=== PATIENT | male | born 1955 | race Caucasian/White ===

== ENCOUNTER → 2020-02-15 10:52 | Outpatient (CLI) | payer OTHER, SELFPAY ==
--- NOTE | 2020-02-15 | DI.MRI.S_ITS ---
PROCEDURE: MR PELIS WO/W CON INDICATIONS: Malignant neoplasm of prostate TECHNIQUE: Coronal HASTE, axial T1 FSE with fat saturation, 3-plane nonbreath-hold T2 FSE. After the administration of contrast, dynamic axial, delayed axial and coronal VIBE or 2-D FLASH with fat saturation through the pelvis. Optional diffusion weighted imaging and ADC may be performed. COMPARISON: None. FINDINGS: Image quality: Diagnostic. Prostate: There is a large postsurgical defect within the prostate consistent with sequela of prior transurethral prostatic resection, with surgical absence of the majority of the transition zone. Within the inferior aspect of the surgical defect, there is a lobulated mass measuring approximately 2.8 x 2.5 x 2.8 cm. This demonstrates heterogeneous internal signal with predominant hypointense signal within the right aspect of the lesion. There is heterogeneous enhancement following contrast administration post prominent in the right aspect. This also demonstrates mild hyperintensity on DWI diffusion sequences with moderate hypointensity on the ADC map. There is residual peripheral zone along the surgical margins. No suspicious lesions demonstrated within the peripheral zone. Genitourinary system: There is mild bladder wall thickening and trabeculation with small bladder diverticula on the right and anterior aspects of the bladder. Distal ureters are non distended. Bowel and peritoneum: No pathologic free pelvic fluid. Inferior colon and small bowel loops are normal in caliber. Nodes and vessels: No pelvic or inguinal adenopathy by size criteria. Iliac vessels are normal in caliber. Soft tissues: No inguinal hernias. Bones: Marrow demonstrates normal overall signal, without lesions to suggest metastases. IMPRESSION: 1. Post surgical changes demonstrated status post prior TURP. 2. Lobulated heterogeneously enhancing mass within the inferior aspect of the prostatic surgical defect. While this may represent residual transitional zone prostatic tissue, residual or recurrent malignancy is not excluded particularly within the right aspect of the lesion which demonstrates hypointense T2 signal with prominent enhancement. Recommend correlation with cystoscopy. Given the postsurgical changes with associated vascular perfusion changes, PI-RADS analysis was not performed on this lesion. 3. No lymphadenopathy or other evidence of metastatic disease in the pelvis. 4. Bladder wall trabeculation and thickening with small diverticula compatible with sequelae of chronic bladder outlet obstruction. Dictated by: Js Lawrence M.D. on 02/15/2020 at 14:45 Approved by: Js Lawrence M.D. on 02/15/2020 at 14:59
== END ==
PROVIDERS: PCP Registered Nurse Diabetes Educator; Referring Provider Registered Nurse Diabetes Educator; Visit Provider Specialist
DX: C61 Malignant neoplasm of prostate (principal); N32.89 Other specified disorders of bladder; N32.3 Diverticulum of bladder
CPT/HCPCS: 72197; A9579

== ENCOUNTER → 2020-10-01 11:25 | Outpatient (CLI) | payer MEDICARE, OTHER, SELFPAY | PROVIDERS: PCP Registered Nurse Diabetes Educator; Visit Provider Specialist | DX: C61 Malignant neoplasm of prostate (principal); N39.0 Urinary tract infection, site not specified; N52.9 Male erectile dysfunction, unspecified | CPT/HCPCS: 51798; 81002; 87086; 99214 ==

== ENCOUNTER → 2021-05-23 12:07 | Outpatient (CLI) | payer MEDICARE, OTHER, SELFPAY ==
[2021-05-23 14:17] LABS: Prostate Specific Antigen 0.994 ng/mL (0.10-4.00)
== END ==
PROVIDERS: PCP Internal Medicine; Referring Provider Specialist; Visit Provider Specialist
DX: C61 Malignant neoplasm of prostate (principal)
CPT/HCPCS: 36415; 84153

== ENCOUNTER → 2021-10-02 09:07 | Outpatient (CLI) | payer OTHER, SELFPAY ==
[2021-10-02 10:52] LABS: COVID19 -Nasal RAPID Negative (Negative)
== END ==
PROVIDERS: PCP Internal Medicine; Visit Provider Surgery
DX: Z20.822 Contact with and (suspected) exposure to COVID-19 (principal); Z01.812 Encounter for preprocedural laboratory examination
CPT/HCPCS: 87635; C9803

== ENCOUNTER 2021-10-03 13:14 | Day surgery (SDC) | payer OTHER, SELFPAY ==
--- NOTE | 2021-10-03 13:56 | PM.HP.1 ---
History of Present Illness History of Present Illness Date Patient Seen: 10/03/21 Time Patient Seen: 13:56 Chief complaint: SCREENING COLONOSCOPY Narrative: H/o colon polyps, last scope was 5 years ago. No symptoms Patient History Medical History (Updated 10/03/21 @ 13:54 by Declan Ramirez RN) Arthritis Erectile dysfunction Erectile dysfunction Prostate cancer Prostate cancer Thrombocytopenia Surgical History H/O hernia repair H/O transurethral resection of prostate H/O vasectomy Family & Social History Tobacco & Substance use: Smoking Status Never smoker Meds Home Medications and Allergies Home Medications Medication Instructions Recorded Confirmed Type finasteride 5 mg tablet 5 mg PO DAILY 09/26/20 10/03/21 History hydroxyurea 500 mg capsule 500 mg PO DAILY 09/26/20 10/03/21 History aspirin 81 mg tablet,delayed 81 mg PO DAILY 10/01/20 10/03/21 History release multivitamin 1 tab PO DAILY 10/01/20 10/03/21 History turmeric root extract 1,053 mg 1,076 mg PO DAILY 10/01/20 10/03/21 History tablet Allergies Allergy/AdvReac Type Severity Reaction Status Date / Time No Known Drug Allergies Allergy Verified 10/03/21 13:52 Review of Systems Review of Systems ROS: Yes All systems reviewed with the patient and are negative except as otherwise documented Exam Const General: cooperative and healthy appearing Nutritional Appearance: average body habitus HENMT Head: normal to inspection Eyes Sclera: sclerae normal Neck Neck: trachea midline Resp Effort & Inspection: normal respiratory effort and able to speak in complete sentences Auscultation: clear to auscultation bilaterally Cardio Rate: regular rate Rhythm: regular rhythm GI Inspection: normal to inspection Skin General: elasticity normal and turgor normal Neuro General: patient alert and patient oriented x3 Cognition: normal cognition Psych Appearance: grossly normal Judgment: judgment good Assessment & Plan Assessment & Plan narrative: H/o colon polyps. Plan: colonoscopy with moderated sedation COVID-19 COVID-19 status: Negative Time Spent With Patient Time with patient: less than 30 minutes Critical Care time: I spent a total of [] minutes of critical care time on this patient's care today; this time is exclusive of procedural time.
[2021-10-03 13:57] VITALS: BP 135/84; PULSE 74; RESP 16; TEMP 36.5; O2SAT 99; BMI 26.6
[2021-10-03] MEDS: fentaNYL 250 MCG/5 ML INJ IV (15:20)
[2021-10-03] MEDS: MIDAZOLAM 5 MG/5 ML VIAL IV (15:20)
--- NOTE | 2021-10-03 15:48 | PM.OP.ENDO ---
Operative Date/Time/Diagnoses Date of procedure: 10/03/21 Time of procedure: 15:48 Pre-op diagnosis: History of colon polyps Post-op diagnosis: same Procedure & Clinicians Study performed: Colonoscopy with moderate sedation Same procedure as scheduled: Yes Indications: History of colon polyps Surgeon: Juanita Pope Procedure Notes SCOAP/Timeout: Done Procedure in detail: Preop diagnosis: History of colon polyps Postop diagnosis: Same Physician: Lindsey Pope MD Procedure: Colonoscopy with moderate sedation Findings: Very torturous colon, no polyps identified. Scant diverticulosis of the descending colon Procedure: Patient placed in the lateral position. Rectal exam is performed showing normal tone no masses. Colonoscope was inserted into the rectum and advanced to ileocecal valve with minimal difficulty. Insufflation extractions scope with the above findings. Impression: No polyps identified. Scant small diverticula in the descending colon. Plan: Repeat colonoscopy in 5 years due to history of colon polyps Sedation minutes: 59 Findings: diverticulitis Specimen(s): none sent Complications: none Post-procedure Recommendations: Colonscopy in 5 years Disposition: PACU
[2021-10-03 15:50] VITALS: BP 120/58; PULSE 74; RESP 16; TEMP 36.6; O2SAT 97
[2021-10-03 15:55] VITALS: BP 124/83; PULSE 73; RESP 14; O2SAT 97
[2021-10-03 16:00] VITALS: BP 116/75; PULSE 73; RESP 14; O2SAT 96
[2021-10-03] MEDS: LACTATED RINGERS 1,000 ML 42 ML IV (16:02)
[2021-10-03 16:06] VITALS: BP 127/75; PULSE 78; RESP 14; O2SAT 97
== END 2021-10-03 16:19 | disposition home or self-care (01) ==
PROVIDERS: PCP Internal Medicine; Referring Provider Surgery; Visit Provider Surgery
PROC: 0DJD8ZZ Inspection of Lower Intestinal Tract, Via Natural or Artificial Opening Endoscopic (ICD-10-PCS; CPT 45378; principal; 2021-10-03 14:30)
DX: Z12.11 Encounter for screening for malignant neoplasm of colon (principal); Z86.010 Personal history of colon polyps; K57.30 Diverticulosis of large intestine without perforation or abscess without bleeding
CPT/HCPCS: 45378; 99152; 99153; J2250; J3010

== ENCOUNTER → 2022-01-01 13:27 | Outpatient (CLI) | payer OTHER, SELFPAY | PROVIDERS: PCP Internal Medicine; Referring Provider Internal Medicine; Visit Provider Internal Medicine | DX: R07.89 Other chest pain (principal); Z53.8 Procedure and treatment not carried out for other reasons ==

== ENCOUNTER → 2022-01-06 11:46 | Outpatient (CLI) | payer OTHER, SELFPAY ==
[2022-01-06 13:49] LABS: COVID19 -Nasal RAPID Negative (Negative)
== END ==
PROVIDERS: PCP Internal Medicine; Referring Provider Internal Medicine Cardiovascular Disease; Visit Provider Family Medicine Sleep Medicine
DX: Z20.822 Contact with and (suspected) exposure to COVID-19 (principal)
CPT/HCPCS: 87635; C9803

== ENCOUNTER → 2022-01-08 15:03 | Outpatient (CLI) | payer OTHER, SELFPAY ==
--- NOTE | 2022-01-08 | DI.NM.S_ITS ---
PROCEDURE: NM EXERCISE TREADMILL NON NUC COMPARISON: None. INDICATIONS: Other chest pain FINDINGS: Rest ECG sinus rhythm. Manuel protocol 7:51, maximum heart rate 147 bpm (95% peak predicted), peak blood pressure 176/80. 10.1 METS, REGGIE -3%. Stress ECG sinus tachycardia, 1 to 2 mm flat to upsloping ST segment depressions leads II, III, aVF and V3 through V6. PVCs noted in early recovery. IMPRESSION: 1. Abnormal exercise stress test with 1 to 2 mm flat to upsloping ST segment changes and PVCs in recovery concerning for ischemia. 2. Normal exercise capacity. 3. Normal blood pressure response to exercise. 4. Consider repeat stress testing with associated imaging. 5. Message was left with the office of the ordering provider, Kimberly Petersen MD at [phone]. Dictated by: Nessa Macias D.O. on 01/09/2022 at 17:23 Approved by: Nessa Macias M.D. on 01/09/2022 at 17:37
== END ==
PROVIDERS: PCP Internal Medicine; Referring Provider Internal Medicine Cardiovascular Disease; Visit Provider Internal Medicine
DX: R07.89 Other chest pain (principal); R94.39 Abnormal result of other cardiovascular function study
CPT/HCPCS: 93017

== ENCOUNTER → 2022-02-04 11:07 | Outpatient (CLI) | payer MEDICARE, OTHER, SELFPAY ==
[2022-02-04 14:56] LABS: Prostate Specific Antigen 0.972 ng/mL (0.10-4.00)
== END ==
PROVIDERS: PCP Internal Medicine; Referring Provider Specialist; Visit Provider Specialist
DX: C61 Malignant neoplasm of prostate (principal)
CPT/HCPCS: 36415; 84153

== ENCOUNTER → 2025-05-10 12:47 | Outpatient (CLI) | payer OTHER, SELFPAY ==
[2025-05-10 13:41] LABS: Estimated Glomerular Filt Rate > 60 mL/min (>60)
== END ==
PROVIDERS: PCP Family Medicine; Referring Provider Internal Medicine Hematology & Oncology; Visit Provider Internal Medicine Hematology & Oncology
DX: C61 Malignant neoplasm of prostate (principal)
CPT/HCPCS: 36415; 82565

== ENCOUNTER → 2025-05-10 12:56 | Outpatient (CLI) | payer OTHER, SELFPAY ==
--- NOTE | 2025-05-10 12:58 | DI.MRI.S_ITS ---
PROCEDURE: MR PELVIC PROSTATE PROTOCOL INDICATIONS: Prostate Cancer TECHNIQUE: Coronal HASTE, axial T1 FSE with fat saturation, 3-plane nonbreath-hold T2 FSE. After the administration of contrast, dynamic axial, delayed axial and coronal VIBE or 2-D FLASH with fat saturation through the pelvis. Diffusion weighted imaging and ADC was performed. COMPARISON: None. FINDINGS: Image quality: Diffusion weighted and dynamic contrast enhanced images are diagnostic. Prostate: Gland size is 4 x 2.8 x 3 cm; ellipsoid gland volume is 17.4 mL. PSA not provided to calculi PSA density Transitional zone heterogenous nodules are present, either well encapsulated or mostly encapsulated, compatible with PI-RADS 1 or 2 likely BPH nodules. Mid gland left posterolateral peripheral zone lesion measures 8 mm (4/11). DWI score 4. T2 score 3. DCE positive. PI-RADS 4. Mid gland right posterolateral peripheral zone lesion measures 7 mm (4/12). DWI score 4. T2 score 3. DCE positive. PI-RADS 4. The seminal vesicles appear clear. No definite extracapsular disease. Genitourinary system: Trabeculated bladder, usually due to chronic obstruction. Possible prior TURP changes. No distal ureter dilation Bowel and peritoneum: No acute small bowel obstruction. No drainable abscess or ascites Nodes and vessels: No aneurysmal vessel identified. No enlarged lymph nodes by size criteria Soft tissues: Small left inguinal fat containing hernia Bones: No aggressive appearing osseous abnormality. IMPRESSION: Bilateral PI-RADS 4 mid gland peripheral zone lesions. No definite extracapsular disease, seminal vesicle involvement, enlarged lymph nodes by size criteria in the pelvis, or aggressive osseous lesion. Dictated by: Jose A Mcnair M.D. on 05/12/2025 at 7:22 Approved by: Jose A Mcnair M.D. on 05/12/2025 at 7:30
--- NOTE | 2025-05-10 13:00 | DI.CT.S_ITS ---
PROCEDURE: CT CHEST ABDOMEN W CON INDICATIONS: Prostate Cancer TECHNIQUE: After the administration of intravenous contrast, 5 mm thick sections acquired from the lung apices to the iliac crests. 5 mm coronal and sagittal reformats were performed, with additional 7 mm coronal MIP reformats through the lungs. For radiation dose reduction, the following was used: automated exposure control, adjustment of mA and/or kV according to patient size. COMPARISON: None. FINDINGS: Image quality: Diagnostic. CHEST: Lower Neck: No enlarged lymph nodes. Thyroid: No thyroid nodules which require sonographic follow up, per consensus guidelines. Axillae: No enlarged lymph nodes. Chest Wall: Unremarkable. Bones: Unremarkable. Lungs and Pleura: No pneumothorax or pleural effusions. No consolidation or suspicious nodules. Heart: Heart size is normal. No pericardial effusion. Thoracic Vessels: The aorta and pulmonary arteries demonstrate normal size. Mediastinum and Lena: No enlarged lymph nodes. Esophagus: No wall thickening. No hiatal hernia. ABDOMEN: Liver: Multiple hepatic cysts. Gallbladder: No radiopaque gallstones or wall thickening. Biliary ducts: No biliary dilation. Pancreas: No ductal dilation. Spleen: Size is within normal limits. Adrenal Glands: No adrenal nodules. Kidneys and Ureters: No hydronephrosis. No solid mass. No complex renal cystic lesion which requires follow up. Stomach and Bowel: Normal colonic caliber, without significant wall thickening. Fecal debris within the small bowel. Peritoneum: No abnormal intraperitoneal fluid. No free air. Ventral Wall: No significant ventral hernia. Abdominal Nodes: No retroperitoneal or mesenteric adenopathy by size criteria. Vessels: Aorta and inferior vena cava are normal in size. PELVIS: Pelvic Organs: Unremarkable. Bladder: No bladder wall thickening, accounting for underdistention. Pelvic Nodes: No enlarged lymph nodes. Miscellaneous: No inguinal hernias are seen. Bones: No aggressive osseous abnormality. IMPRESSION: No measurable disease. Fecal debris within the small-bowel, usually indicating small intestinal bacterial overgrowth versus slow transit. Dictated by: Kenrick Wynn M.D. on 05/12/2025 at 12:23 Approved by: Kenrick Wynn M.D. on 05/12/2025 at 12:25
== END ==
PROVIDERS: PCP Family Medicine; Referring Provider Internal Medicine Hematology & Oncology; Visit Provider Internal Medicine Hematology & Oncology
DX: C61 Malignant neoplasm of prostate (principal); N32.89 Other specified disorders of bladder; K40.90 Unilateral inguinal hernia, without obstruction or gangrene, not specified as recurrent; K76.89 Other specified diseases of liver
CPT/HCPCS: 36415; 71260; 72197; 74160; 82565; A9579; Q9967